=== PATIENT | male | born 1985 | race Caucasian/White ===

== ENCOUNTER 2021-12-25 00:50 | Emergency (ER) | payer OTHER ==
[~2021-12-25] VITALS: Ht 170.2 cm; Wt 86.2 kg
--- NOTE | 2021-12-25 00:50 | NUR ---
PT HANS ALATORRE, PREBOOK. TAKEN TO CHAIR
[2021-12-25 01:00] VITALS: BP 183/104
--- NOTE | 2021-12-25 01:06 | NUR ---
Dr. Rodarte examining patient.
--- NOTE | 2021-12-25 01:30 | NUR ---
36 Y/O MALE BIB PD FOR HTN. PATIENT PRESENTS TO ED WITH HTN AND NO OTHER MEDICAL COMPLAINT. DENIES N/V/D; SKIN IS PINK/WARM/DRY; AAOX4 WITH EVEN AND STEADY GAIT; LUNGS CLEAR BL; HR EVEN AND REGULAR; PT DENIES ANY FEVER, CP, SOB, OR COUGH AT THIS TIME; PATIENT STATES PAIN OF 0/10 AT THIS TIME; VSS; PATIENT SEATED IN CHAIR; PT IN CUSTODY WEARING HANDCUFFS. ER MD MADE AWARE OF PT STATUS. HX: HTN NKA
[2021-12-25 03:36] VITALS: BP 141/105
--- NOTE | 2021-12-25 03:36 | NUR ---
Patient discharged with v/s stable. Written and verbal after care instructions given and explained. Patient verbalized understanding. Police with in custody. All questions addressed prior to discharge. Advised to follow up with PMD. BP STABLE, VSS, A/OX4, AMBULATORY, UNLABORED BREATHING. Pt seen by MD, no nursing interventions done.
== END 2021-12-25 03:36 ==
LOC: MED 00:50
DX: I10 Essential (primary) hypertension (principal); Z02.89 Encounter for other administrative examinations
CPT/HCPCS: 99283